=== PATIENT | female | born 1935 | race Caucasian/White ===

== ENCOUNTER 2019-10-01 17:12 | Emergency (ER) | payer MEDICARE, SELFPAY ==
[2019-10-01 17:13] VITALS: BP 169/79; PULSE 88; RESP 16; TEMP 36.8; O2SAT 97; BMI 20.9
--- NOTE | 2019-10-01 17:59 | CT_ITS ---
STUDY: CT BRAIN WITHOUT CONTRAST REASON FOR EXAM: Female, 84 years old. LEFT ARM WEAKNESS,ELEVATED BP RADIATION DOSAGE (If Supplied By Facility): CTDIvol = ( 44.99 ) mGy, DLP = ( 796.11 ) mGycm TECHNIQUE: Transaxial CT imaging of the brain was performed without administration of intravenous contrast material. Individualized dose optimization techniques were used for this CT. COMPARISON: No relevant priors. FINDINGS: Normal soft tissue structures. Normal calvarium. Mild calcification of cavernous carotids Moderate atrophy and periventricular white matter ischemic changes.. Normal basal ganglia and thalami. Normal brainstem. Normal cerebellum. There is no intracranial hemorrhage. There are no findings of an acute ischemic infarction. Postsurgical changes of the orbits. Moderate right maxillary sinus disease and mild mucosal thickening in the bilateral ethmoid and right sphenoid sinuses. CT/Brain/Head without Contrast IMPRESSION: Moderate atrophy and periventricular white matter ischemic changes. No evidence for acute bleed. If concern for acute infarct MRI recommended. Electronically Signed: Vicente Huffman MD at 18:48 EDT , Service support ,
--- NOTE | 2019-10-01 18:00 | EKG12_ITS ---
Test Reason : DIZZINESS Blood Pressure : / mmHG Vent. Rate : 074 BPM Atrial Rate : 074 BPM P-R Int : 168 ms QRS Dur : 092 ms QT Int : 416 ms P-R-T Axes : 071 011 041 degrees QTc Int : 461 ms Normal sinus rhythm Normal ECG Confirmed by ORQUIDEA OLSEN, JEROME ([id number]), metropolitan editor MARIE ADAMES ([id number]) on 10/05/2019 10:53:35 AM Referred By: Jessica Luna Confirmed By:JEROME HEARD MD
[2019-10-01 18:25] LABS: Absolute Lymphocyte Count 1.51 X10^3/uL (0.83-4.51); Absolute Neutrophil Count 2.7 X10^3/uL (2.0-7.7); Basophil# 0.04 X10^3/uL; Basophil% 0.8 % (0-1); Eosinophil# 0.24 X10^3/uL; Eosinophils% 4.7 % (0-5); Hematocrit 42.7 % (37-47); Lymphocyte # 1.51 X10^3/ul (4.0); Lymphocyte % 29.5 % (19-41); Mean Corp Hgb Conc 32.8 g/dL (32-36); Mean Corpuscular Volume 91.4 fL (81-99); Mean Platelet Vol. 9.4 fl (6.2-12.0); Monocyte# 0.58 X10^3/uL; Monocyte% 11.4 % (0-10); NRBC Flagged by Analyzer 0 % (0-5); Neutrophil # 2.73 X10^3/uL (2.7-7.7); Neutrophil % 53.4 % (47-70); Platelet Count 233 K/mm3 (150-450); RBC Distribution Width CV 12.6 % (11.6-14.6); RBC Distribution Width SD 41.3 fl (35.1-43.9); Red Blood Count 4.67 M/mm3 (4.2-5.4); White Blood Count 5.1 K/mm3 (4.4-11.0)
[2019-10-01 18:33] LABS: Prothrombin Time (Protime)PT. 12.4 SECONDS (11.7-14.9)
[2019-10-01 18:41] LABS: ALB/GLOB Ratio 1.2 RATIO (0.9-2.4); AST(SGOT) 14 U/L (15-37); Alanine Aminotransfer ALT/SGPT 20 U/L (13-56); Alkaline Phosphatase 80 U/L (45-117); Anion Gap 6 (5-15); BUN 11 mg/dL (7-18); BUN/Creat Ratio 17.7 RATIO (10-20); Calcium,Total 9.6 mg/dL (8.5-10.1); Chloride 98 mmol/L (98-107); Creatinine, Serum 0.62 mg/dL (0.55-1.02); EST Glomerular Filtration Rate 97 mL/min (>60); Est Glom Filt Rate - Afr Amer 117 mL/min (>60); Estimated Creatinine Clearance 32.53 ml/min; Globulin 3.4 g/dL (2.2-4.2); Glucose 97 mg/dL (74-106); Potassium 4.2 mmol/L (3.5-5.1); Protein, Total 7.4 g/dL (6.4-8.2); Sodium Level 133 mmol/L (136-145)
[2019-10-01 19:12] LABS: Bacteria 0 SEEN /hpf (None Seen); Mucous, Urine 0 SEEN /hpf (<or=2+); Red Blood Cells-Urine 0 SEEN /hpf (0-5)
[2019-10-01 19:19] LABS: Color, Urine Yellow (Yellow); Glucose, Dipstick Normal (Normal); Ketone-Dipstick Negative (Negative); Leukocyte Esterase-Dipstick 25 /ul (Negative); Nitrite-Dipstick Negative (Negative); Occult Blood-Urine 25 /ul (Negative); Protein-Dipstick Negative (Negative); Specific Gravity, Urine 1.005 (1.002-1.030); Urine Bilirubin Dipstick Negative (Negative); Urine Clarity Sl. Cloudy (Clear); Urine Urobilinogen Normal (Normal)
[2019-10-01 19:31] LABS: Squamous Epithelial Cells - UA 0-5 SEEN /hpf (5-10); White Blood Cells 0-5 SEEN /hpf (0-5)
[2019-10-01 19:55] VITALS: O2SAT 100
--- NOTE | 2019-10-01 21:06 | ED.VISSUMM ---
- ER Visit Summary Date of Service: 10/01/19 Chief Complaint: Hypertension, confusion, fatigue History of Present Illness: The patient is a 84 F who presents with hypertension, confusion, and fatigue that has been constant over the past 5 days. Patient states that she has noticed her blood pressure to be elevated over the past several days. Patient states she feels dizzy and fatigued. Patient states she feels confused at times. Patient states she just does not feel like her normal self. Patient admits to some mild nausea but denies any vomiting. Patient denies any chest pain or shortness of breath. Patient admits to some chills but denies any fevers. Patient denies any sick contacts. Physical Examination: Vital signs are stable. Patient is afebrile. Patient is in no acute distress. Oral mucosa is pink and moist. Neck is supple. Trachea is midline. There is no JVD. Heart was regular rate and rhythm. Lungs are clear and equal bilaterally. Abdomen is soft. Bowel sounds are normal. There is no tenderness. Cranial nerves II through XII are intact. There are no focal motor or sensory deficits noted. Extremities are intact. There is no calf tenderness or edema. Test Results: EKG showed normal sinus rhythm with a rate of 74. There are no acute ST or T wave changes. This was unchanged compared to previous EKG dated 04/13/2019. CT scan of the brain was obtained. There is mild atrophy but no acute intracranial abnormality. CBC, comprehensive metabolic profile, and urinalysis were obtained were all within normal limits. Emergency Department Course and Treatment: Patient was feeling better on reevaluation. Patient wants to go home. Patient was advised of her findings. Patient was instructed to follow-up with her primary care physician in 5 to 7 days. Patient and her family understood and were agreeable with the plan. All questions were answered. Disposition: Discharge home Impression: 1. Dizziness This note was generated with [employer] dictation software. It may contain incorrect words, spelling, and punctuation that were not noted in review of the chart prior to signing ED Disposition - Plan for ED Patient: Disposition: Home or Assisted Living Diagnosis: Dizziness Instructions: ED Dizziness [facility] Referrals: Antwon Staton DO [Primary Care Provider] - 5-7 Days
[2019-10-01 21:35] VITALS: BP 155/82; PULSE 78; RESP 18; O2SAT 98
== END 2019-10-01 21:36 | disposition home or self-care (01) ==
PROVIDERS: Emergency Provider Emergency Medicine; PCP Student in an Organized Health Care Education/Training Program
DX: R42 Dizziness and giddiness (principal); I10 Essential (primary) hypertension; R53.83 Other fatigue; R41.0 Disorientation, unspecified; R11.0 Nausea; Z79.899 Other long term (current) drug therapy; R53.1 Weakness; E03.9 Hypothyroidism, unspecified
CPT/HCPCS: 70450; 80053; 81001; 84484; 85025; 85610; 85730; 93005; 99284; J7040; A4216

== ENCOUNTER → 2019-10-04 | Outpatient (CLI) | payer MEDICARE, SELFPAY ==
[2019-10-01 17:13] VITALS: BMI 20.9
== END | disposition home or self-care (01) ==
LOC: LABSPEC 11:26
PROVIDERS: PCP Student in an Organized Health Care Education/Training Program; Referring Provider Registered Nurse; Visit Provider Registered Nurse
DX: Z20.828 Contact with and (suspected) exposure to other viral communicable diseases (principal)
CPT/HCPCS: 87635; G2023; U0003

== ENCOUNTER 2020-04-28 13:46 | Outpatient (RCR) | payer MEDICARE, SELFPAY | END 2020-04-28 23:59 | LOC: IMMUN 13:46 | PROVIDERS: PCP Student in an Organized Health Care Education/Training Program; Visit Provider Family Medicine | DX: Z23 Encounter for immunization (principal) | CPT/HCPCS: 0011A; 0012A; 91301 ==

== ENCOUNTER 2023-06-27 20:57 | Emergency (ER) | payer MEDICARE, SELFPAY ==
[2023-06-27 20:59] VITALS: BP 177/90; PULSE 88; RESP 18; TEMP 36.8; O2SAT 98; BMI 19.7
[2023-06-27 22:00] VITALS: BP 154/59; PULSE 93; RESP 20; O2SAT 98
--- NOTE | 2023-06-27 22:15 | EKG12_ITS ---
Test Reason : CONFUSION Blood Pressure : / mmHG Vent. Rate : 088 BPM Atrial Rate : 088 BPM P-R Int : 182 ms QRS Dur : 086 ms QT Int : 376 ms P-R-T Axes : 071 002 052 degrees QTc Int : 454 ms Sinus rhythm with Premature atrial complexes Nonspecific ST abnormality Abnormal ECG Confirmed by Hipolito Lion ([id number]), primer expeditor and drier JANENE WATT ([id number]) on 07/01/2023 8:56:28 AM Referred By: MAT Confirmed By:Hipolito Lion
--- NOTE | 2023-06-27 22:15 | CT_ITS ---
INDICATION: dizziness, confusion EXAMINATION: CT BRAIN WITHOUT CONTRAST, CTA HEAD, AND CTA NECK TECHNIQUE: Noncontrast axial images were obtained of the brain. Subsequently, routine carotid CT angiogram protocol was performed without and with IV contrast. In addition, images were obtained of the [place]. NASCET criteria using the distal ICAs for comparison were used for evaluation of stenoses. 3D reconstructions were reviewed. A radiation dose optimization technique was used for this scan. IV Contrast dosage and agent: 100 mL of Isovue-370 COMPARISON: No relevant prior comparison study available FINDINGS: --CT BRAIN WITHOUT CONTRAST: BRAIN PARENCHYMA: No intra- or extra-axial hemorrhage. No evidence of acute infarct. No intracranial mass or mass effect. There is preservation of the sheikh/white matter interface. Posterior fossa structures are unremarkable. CSF SPACES mild to moderate global cerebral volume loss.. No hydrocephalus. Basal cisterns are patent. CALVARIUM, SKULL BASE, PARANASAL SINUSES AND MASTOID AIR CELLS: Mild mucoperiosteal thickening at the right maxillary sinus. The remaining paranasal sinuses and mastoid air cells are clear.. No discrete lytic or blastic abnormalities. ASPECTS Score for Acute Strokes: 10 --CTA NECK: AORTIC ARCH AND BRANCHES: Normal anatomy, patent. RIGHT CCA: No occlusion, significant stenosis or dissection. RIGHT ICA: No occlusion, significant stenosis or dissection. Mild atherosclerotic calcification at the origin without flow-limiting stenosis. LEFT CCA: No occlusion, significant stenosis or dissection. LEFT ICA: No occlusion, significant stenosis or dissection. Mild atherosclerotic calcification at the origin without flow-limiting stenosis. RIGHT VERTEBRAL ARTERY: No occlusion, significant stenosis or dissection. LEFT VERTEBRAL ARTERY: No occlusion, significant stenosis or dissection. NECK SOFT TISSUES: Unremarkable. OSSEOUS STRUCTURES: Moderate degenerative change of the cervical spine. --CTA HEAD: --Anterior circulation: ICAs: No significant stenosis at the intracranial/visualized segments. ACAs: No significant stenosis at the visualized segments. ACOM: Present. MCAs: No significant stenosis at the visualized segments. --Posterior circulation: PCOMs: Diminutive on the left. Prominent vessel on the right with low origin off of the internal carotid artery. Variant anatomy directly to the basilar artery. parking line painter: No significant stenosis at the visualized segments. BASILAR ARTERY: No significant stenosis. VERTEBRAL ARTERIES: No significant stenosis at the intradural/visualized segments. Dominant left vertebral artery. No evidence of intracranial aneurysm or vascular malformation. CT/CTA Head AND Neck W/ Contrast IMPRESSION: No acute intracranial finding. No flow limiting stenosis or large vessel occlusion. Electronically Signed: Mickey Joy MD at 0:00 EDT ,
--- NOTE | 2023-06-27 22:16 | EX.ED.DYSGE1 ---
HPI History of Present Illness Chief Complaint: Confusion Detail of Chief Complaint: Lightheadedness and confusion Informant: patient Narrative Narrative: Patient presents with complaint of lightheadedness that she has had for about 3 to 4 weeks. Patient states that she was getting her hair done and when she is sat up and moves her head she started having dizziness and she has had it off and on since then. Patient also states that time she is having a hard time finding her words. Today she had an episode of lightheadedness and had a hard time finding her words so she comes in for evaluation. Patient was seen by ENT for this and was referred back to her primary care physician who ordered outpatient CT scan of the brain as well as ultrasound of the carotids that has not been done yet. Currently she is feeling improved. She denies recent illness. She denies falls or head injuries. She denies focal weakness or vision changes. PFSH PFSH Home Medications Timolol 0.5% 1 drp BID 01/03/16 [History Last Taken 01/03/16 09:00] Vit D3/Folic Acid/B2/B6/B12 [Folgard Tablet] 1 tab PO DAILY 01/03/16 [History Last Taken 1 Week Ago ~12/27/15] latanoprost 0.005 % eye drops 1 drp DAILY 01/03/16 [History Last Taken 01/03/16 09:00] levothyroxine 100 mcg tablet 100 mcg PO DAILY 01/03/16 [History Last Taken 01/03/16] latanoprost 0.005 % eye drops 1 drp 0600 01/17/16 [Rx Last Taken Unknown] levothyroxine 100 mcg tablet 100 mcg PO DAILY@0600 01/17/16 [Rx Last Taken Unknown] melatonin 3 mg tablet 3 mg PO QHS ##14 01/17/16 [Rx Last Taken Unknown] pantoprazole 40 mg tablet,delayed release 40 mg PO DAILY ##14 01/17/16 [Rx Last Taken Unknown] polyethylene glycol 3350 17 gram oral powder packet 17 g PO DAILY ##14 01/17/16 [Rx Last Taken Unknown] polysaccharide iron complex 150 mg iron capsule (Ferrex) 150 mg PO DAILYCM ##14 01/17/16 [Rx Last Taken Unknown] timolol maleate 0.5 % eye drops 1 drp 0600,2200 10/12/16 [Rx Last Taken Unknown] tramadol 50 mg tablet 50 mg PO Q6H PRN PRN Moderate Pain (4-5/10) ##30 01/17/16 [Rx Last Taken Unknown] trazodone 50 mg tablet 50 mg PO QHS PRN Insomnia ##14 01/17/16 [Rx Last Taken Unknown] Allergy/AdvReac Type Severity Reaction Status Date / Time Penicillins Allergy Unknown Unknown Verified 06/27/23 21:05 alendronate sodium Allergy Unknown Verified 06/27/23 21:05 [From Fosamax] Sulfa (Sulfonamide Allergy Unknown Verified 06/27/23 21:05 Antibiotics) Tetracyclines Allergy Unknown Verified 06/27/23 21:05 Social History Smoking Status: Never smoker ROS ROS ED Review of Systems ROS Unobtainable: other Constitutional Constitutional ED: Reports lethargy; Denies chills, fever(s), sweats or weight loss Eyes Eyes: Denies blurry vision, change in vision or diplopia ENT ENT ED: Denies rhinorrhea or sore throat Cardiovascular Cardiovascular: Denies chest pain, orthopnea or racing heartbeat Respiratory/Chest Respiratory/Chest: Denies cough, dyspnea, dyspnea on exertion, orthopnea or sputum Gastrointestinal Gastrointestinal: Denies abdominal pain, diarrhea, nausea or vomiting Genitourinary Genitourinary ED: Denies dysuria, hematuria or urinary frequency Musculoskeletal Musculoskeletal: Denies arthralgias, back pain, myalgias or neck pain Integumentary Denies abscess, Abrasions or rash Neurologic Neurologic: Reports other Details: Dizziness, difficulty finding words ; Denies headache(s) or weakness Psychiatric Psychiatric: Denies anxiety, depression or suicidal thoughts Endocrine Endocrinology: Denies polydipsia, polyphagia or polyuria Hematologic/Lymphatic Hematologic/Lymphatic: Denies easy bleeding, easy bruising or lymphadenopathy Allergic/Immunologic Allergic/Immunologic ED: Denies mouth swelling, tongue swelling or urticaria EXAM Physical Exam Const Vital Signs: 06/27/23 20:59 06/27/23 22:00 06/27/23 23:00 Temperature 98.3 F Temperature Source Temporal Pulse Rate 88 93 83 Respiratory Rate 18 20 H 22 H Blood Pressure 177/90 H 154/59 H 117/58 L Blood Pressure Mean 119 87 74 Pulse Ox 98 98 96 Oxygen Delivery Method Room Air 06/28/23 00:40 06/27/23 23:45 06/28/23 00:15 Temperature 98 F Temperature Source Pulse Rate 91 101 H 91 Respiratory Rate 17 20 H 17 Blood Pressure 162/77 H 126/108 H 162/77 H Blood Pressure Mean 105 114 102 Pulse Ox 100 96 100 Oxygen Delivery Method Positive well nourished and well developed General Appearance ED: well developed and NAD HEENT Reports TM's clear and moist mucous membranes normocephalic and atraumatic; Negative for trauma or tenderness Tympanic Membrane ED: Yes TM's clear Eyes PERRL and EOMs intact bilaterally General Eye ED: Negative for pale conjunctiva or scleral icterus Neck no lymphadenopathy, supple and no JVD General: Negative for tenderness Chest Wall inspection of chest normal and palpation of chest normal Chest: Negative for tenderness Resp normal respiratory effort and clear to auscultation bilaterally Effort and Inspection: Negative for respiratory distress or pain with movement Auscultation: Negative for rhonchi, wheezes or diminished lung sounds Cardio regular rate, regular rhythm, S1 normal heart sound, S2 normal heart sound and no murmurs Peripheral Pulses: pulses 2+ throughout GI normal to inspection, nondistended, normoactive bowel sounds, soft to palpation, non-tender, non-distended and no masses Back/Spine no CVA tenderness and no thoracic nor lumbar tenderness Extremity normal to inspection General Extremety ED: Negative for edema General Extremity: Negative for edema Neuro oriented x3, CN's II-XII intact bilaterally, no sensory deficits noted and gait normal Neuro Narrative: Finger-nose and heel chaudhary testing within normal limits, negative Romberg, negative for drift, fundi benign. No focal weakness. NIH stroke scale 0. Sensorium / Orientation: awake, alert, oriented to person, oriented to place and oriented to time Motor Exam: strength 5/5 throughout and strength abnormal Psych mental status grossly normal Skin no rashes or lesions noted and no wounds MDM MDM MDM Narrative Medical decision making narrative: Patient complains of lightheadedness. She had some episodes intermittently of some difficult defining words. Etiology uncertain. This been going on for up to a month. IV line established. CBC with differential obtained for white count 5.4 with hemoglobin 13.8 and platelet count of 245. Chemistries unremarkable. BUN was 20 and creatinine 0.63. Troponin was normal at 7. EKG obtained showed sinus rhythm with ventricular rate of [address] changes. Patient had a CTA of the head and neck that was unremarkable. Urinalysis was normal. This point etiology of her dizziness unclear. Recommend she follow-up with her primary care physician within next 3 to 5 days. Lab Data Attestation: I reviewed the patient's lab results. Labs: Laboratory Results - last 24 hr 06/27/23 06/27/23 21:17 22:35 WBC 5.4 RBC 4.65 Hgb 13.8 Hct 42.6 MCV 91.6 MCH 29.7 MCHC 32.4 RDW Std Deviation 41.6 RDW Coeff of Dyan 12.5 Plt Count 245 MPV 10.0 Immature Gran % (Auto) 0.200 Neut % (Auto) 43.7 L Lymph % (Auto) 37.0 Coleman % (Auto) 12.9 H Eos % (Auto) 5.6 H Baso % (Auto) 0.6 Absolute Neuts (auto) 2.3 Absolute Lymphs (auto) 1.98 Nucleated RBC % 0 Sodium 131 L Potassium 4.6 Chloride 101 Carbon Dioxide 24.0 Anion Gap 6 BUN 20 H Creatinine 0.63 Estim Creat Clear Calc 38.00 Est GFR (MDRD) Af Amer 114 Est GFR (MDRD) Non-Af 94 BUN/Creatinine Ratio 31.6 H Glucose 127 H Calcium 9.2 Troponin I High Sens 7 Urine Color Straw Urine Clarity Clear Urine pH 6.5 Ur Specific [place] 1.010 Urine Protein Negative Urine Glucose (UA) Normal Urine Ketones Negative Urine Occult Blood 10 H Urine Nitrite Negative Urine Bilirubin Negative Urine Urobilinogen Normal Ur Leukocyte Esterase 25 H Urine RBC 0 SEEN Urine WBC 0-5 SEEN Ur Squamous Epith Cells 0 SEEN Urine Bacteria 0 SEEN Urine Mucus 0 SEEN Radiography Diagnostic Testing: Clinical Impression(s) from Imaging Studies Head/Neck CTA 06/27/23 22:15 IMPRESSION: No acute intracranial finding. No flow limiting stenosis or large vessel occlusion. Electronically Signed: Mickey Joy MD at 0:00 EDT , EKG Initial EKG: Attestation: I personally reviewed and interpreted this EKG as follows: Comments: Sinus rhythm with ventricular rate of [address] changes Discharge Plan Triage Chief Complaint: Confusion ED Provider: Merari Rhoades Dx/Rx/DC Orders Clinical Impression: Dizziness Instructions: ED Dizziness, Uncertain Cause Prescriptions: No Action Vit D3/Folic Acid/B2/B6/B12 [Folgard Tablet] 1 EACH tablet 1 tab PO DAILY latanoprost 1 DROP bottle 1 drp Each Eye DAILY Patient Comments: IN AM PER PATIENT REQUEST levothyroxine 100 MCG tablet 100 mcg PO DAILY Timolol 0.5% 0.5 % Drops 1 drp Each Eye BID latanoprost 1 DROP bottle 1 drp Each Eye 0600 0RF trazodone 50 MG tablet 50 mg PO QHS PRN (Reason: Insomnia) Qty: 14 0RF polyethylene glycol 3350 17 GM powder in packet 17 g PO DAILY Qty: 14 0RF polysaccharide iron complex [Ferrex 150] 150 MG capsule 150 mg PO DAILYCM Qty: 14 0RF melatonin 3 MG tablet 3 mg PO QHS Qty: 14 0RF tramadol 50 MG tablet 50 mg PO Q6H PRN PRN (Reason: Moderate Pain (4-5/10)) Qty: 30 0RF levothyroxine 100 MCG tablet 100 mcg PO DAILY@0600 0RF pantoprazole 40 MG tablet 40 mg PO DAILY Qty: 14 0RF timolol maleate 1 DROP drops 1 drp Each Eye 0600,2200 0RF Primary Care Provider: Antwon Staton Referrals: Antwon Staton DO [Primary Care Provider] - 3-5 Days Disposition Disposition: Home, Self Care Discharge Date/Time: 06/28/23 00:41
[2023-06-27 22:26] LABS: Absolute Lymphocyte Count 1.98 X10^3/uL (0.83-4.51); Absolute Neutrophil Count 2.3 X10^3/uL (2.0-7.7); Basophil# 0.03 X10^3/uL; Basophil% 0.6 % (0-1); Eosinophils% 5.6 % (0-5); Hematocrit 42.6 % (37-47); Hemoglobin 13.8 g/dL (12.0-15.0); Lymphocyte # 1.98 X10^3/ul (0.83-4.51); Mean Corp Hgb Conc 32.4 g/dL (32-36); Mean Corpuscular Hgb 29.7 pg (27.0-32.0); Mean Corpuscular Volume 91.6 fL (81-99); Monocyte# 0.69 X10^3/uL; Monocyte% 12.9 % (0-10); NRBC Flagged by Analyzer 0 % (0-5); Neutrophil # 2.34 X10^3/uL (2.7-7.7); Neutrophil % 43.7 % (47-70); Platelet Count 245 K/mm3 (150-450); RBC Distribution Width CV 12.5 % (11.6-14.6); RBC Distribution Width SD 41.6 fl (35.1-43.9); Red Blood Count 4.65 M/mm3 (4.2-5.4); White Blood Count 5.4 K/mm3 (4.4-11.0)
[2023-06-27 22:39] LABS: Bacteria 0 SEEN /hpf (None Seen); Mucous, Urine 0 SEEN /hpf (<or=2+); Red Blood Cells-Urine 0 SEEN /hpf (0-5); Squamous Epithelial Cells - UA 0 SEEN /hpf (5-10)
[2023-06-27] MEDS: 0.9% Normal Saline (1000mL) 1,000 ML 150 ML IV (22:40)
[2023-06-27 22:43] LABS: Anion Gap 6 (5-15); BUN 20 mg/dL (7-18); BUN/Creat Ratio 31.6 RATIO (10-20); Calcium,Total 9.2 mg/dL (8.5-10.1); Chloride 101 mmol/L (98-107); Creatinine, Serum 0.63 mg/dL (0.55-1.02); EST Glomerular Filtration Rate 94 mL/min (>60); Est Glom Filt Rate - Afr Amer 114 mL/min (>60); Glucose 127 mg/dL (74-106); Potassium 4.6 mmol/L (3.5-5.1); Sodium Level 131 mmol/L (136-145); Troponin-I HS 7 pg/mL (3.0-54.0)
[2023-06-27 22:55] LABS: Color, Urine Straw (Yellow); Glucose, Dipstick Normal (Normal); Ketone-Dipstick Negative (Negative); Leukocyte Esterase-Dipstick 25 /ul (Negative); Nitrite-Dipstick Negative (Negative); Occult Blood-Urine 10 /ul (Negative); Protein-Dipstick Negative (Negative); Urine Bilirubin Dipstick Negative (Negative); Urine Clarity Clear (Clear); Urine Urobilinogen Normal (Normal); Urine pH 6.5 (5.0 - 8.0)
[2023-06-27 23:00] VITALS: BP 117/58; PULSE 83; RESP 22; O2SAT 96
[2023-06-27 23:02] LABS: White Blood Cells 0-5 SEEN /hpf (0-5)
[2023-06-27 23:45] VITALS: BP 126/108; PULSE 101; RESP 20; O2SAT 96
[2023-06-28 00:15] VITALS: BP 162/77; PULSE 91; RESP 17; O2SAT 100
[2023-06-28 00:40] VITALS: BP 162/77; PULSE 91; RESP 17; TEMP 36.6; O2SAT 100
== END 2023-06-28 00:41 | disposition home or self-care (01) ==
PROVIDERS: Emergency Provider Emergency Medicine; PCP Student in an Organized Health Care Education/Training Program; Visit Provider Emergency Medicine
DX: R42 Dizziness and giddiness (principal); R41.0 Disorientation, unspecified; Z79.890 Hormone replacement therapy; Z79.899 Other long term (current) drug therapy
CPT/HCPCS: 70496; 70498; 80048; 81001; 84484; 85025; 93005; 96360; 96361; 99283; J7030; Q9967; A4216

== ENCOUNTER 2023-07-07 07:13 | Observation (INO) | payer MEDICARE, SELFPAY ==
[2023-07-07] VITALS (11 sets, daily range): BP systolic 131–178; BP diastolic 50–84; PULSE 60–112; RESP 15–20; TEMP 36.3–37.7; O2SAT 94–100; BMI 20.1; BMI 18.9
--- NOTE | 2023-07-07 07:27 | EKG12_ITS ---
Test Reason : SOB/DIZZY Blood Pressure : / mmHG Vent. Rate : 068 BPM Atrial Rate : 068 BPM P-R Int : 180 ms QRS Dur : 086 ms QT Int : 410 ms P-R-T Axes : 066 003 057 degrees QTc Int : 435 ms Sinus rhythm with Premature atrial complexes Nonspecific ST and T wave abnormality Abnormal ECG Confirmed by Hipolito Lion ([id number]), web editor MARIE ADAMES ([id number]) on 07/08/2023 10:11:08 AM Referred By: MAYANK/MARGIE Confirmed By:Hipolito Lion
--- NOTE | 2023-07-07 07:27 | CT_ITS ---
INDICATION: speech difficulty EXAMINATION: CT BRAIN WITHOUT CONTRAST, CTA HEAD, AND CTA NECK TECHNIQUE: Noncontrast axial images were obtained of the brain. Subsequently, routine carotid CT angiogram protocol was performed without and with IV contrast. In addition, images were obtained of the [place]. NASCET criteria using the distal ICAs for comparison were used for evaluation of stenoses. 3D reconstructions were reviewed. A radiation dose optimization technique was used for this scan. IV Contrast dosage and agent: 100 cc of Isovue-370 COMPARISON: Prior study dated: 06/27/2023 FINDINGS: --CT BRAIN WITHOUT CONTRAST: BRAIN PARENCHYMA: No intra- or extra-axial hemorrhage. No evidence of acute infarct. No intracranial mass or mass effect. There is preservation of the sheikh/white matter interface. Posterior fossa structures are unremarkable. Periventricular deep white matter changes likely due to chronic microvascular disease. CSF SPACES: Moderate diffuse atrophy. Basal cisterns are patent. CALVARIUM, SKULL BASE, PARANASAL SINUSES AND MASTOID AIR CELLS: Clear. No discrete lytic or blastic abnormalities. --CTA NECK: AORTIC ARCH AND BRANCHES: Normal anatomy, patent. RIGHT CCA: No occlusion, significant stenosis or dissection. RIGHT ICA: No occlusion, significant stenosis or dissection. LEFT CCA: No occlusion, significant stenosis or dissection. Minimal atherosclerotic calcifications in the left bulb. LEFT ICA: No occlusion, significant stenosis or dissection. RIGHT VERTEBRAL ARTERY: No occlusion, significant stenosis or dissection. Dominant left side. LEFT VERTEBRAL ARTERY: No occlusion, significant stenosis or dissection. NECK SOFT TISSUES: Unremarkable. --CTA HEAD: --Anterior circulation: ICAs: No significant stenosis at the intracranial/visualized segments. ACAs: No significant stenosis at the visualized segments. Hypoplastic development of right A1 segment. ACOM: Present. MCAs: No significant stenosis at the visualized segments. 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 dental practitioner: No significant stenosis at the visualized segments. 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 VERTEBRAL ARTERIES: No significant stenosis at the intradural/visualized segments. Dominant left side. No evidence of intracranial aneurysm or vascular malformation. CT/CTA Head AND Neck W/ Contrast IMPRESSION: 1. No evidence of significant intracranial great vessel stenosis. 2. Mild stenosis of the basilar artery. 3. Essentially unremarkable common and internal carotid arteries bilaterally. Electronically Signed: Fidel Rincon MD at 9:46 EDT ,
--- NOTE | 2023-07-07 07:29 | RAD_ITS ---
INDICATION: sob EXAMINATION/TECHNIQUE: X-RAY - XR Chest 1 View COMPARISON: No relevant prior comparison study available FINDINGS: LINES/DEVICES: None. LUNGS: No consolidation, edema or effusion. No pneumothorax. MEDIASTINUM AND CARDIOVASCULAR STRUCTURES: Cardiac silhouette not enlarged. Atherosclerotic calcifications and tortuosity of the thoracic aorta. Central airways and mediastinal contour are unremarkable. BONES AND SOFT TISSUES: Small calcification lateral to the left humeral head consistent with calcific tendinitis. Dextroscoliosis of the lower thoracic spine and degenerative changes. RAD/Chest 1 View (Portable) IMPRESSION: No radiographic evidence of acute cardiopulmonary disease. Electronically Signed: Fidel Rincon MD at 8:53 EDT ,
--- NOTE | 2023-07-07 07:30 | EX.ED.DYSGE1 ---
HPI History of Present Illness Chief Complaint: Shortness of Breath Informant: patient Narrative Narrative: Patient presents with continued episodes of dizziness and difficulty finding her words. Symptoms have been ongoing for a month or more and are intermittent, but states they are occurring pretty much daily. She states this morning's episode seems to be worse than normal. She got up to go the bathroom at 4:30 in the morning and noticed symptoms. She denies pain anywhere. She denies vertigo symptoms but states she feels more lightheaded. She denies palpitations. She is currently wearing a Holter monitor. Patient states that her thyroid medications were recently decreased and her blood pressure medications were also decreased. [facility] Medical History (Updated 07/07/23 @ 09:[address] Jennifer Anderson MD) Arthritis Glaucoma Hypothyroidism Home Medications Vit D3/Folic Acid/B2/B6/B12 [Folgard Tablet] 1 tab PO DAILY 01/03/16 [History Last Taken 1 Week Ago ~12/27/15] latanoprost 0.005 % eye drops 1 drp DAILY 01/03/16 [History Last Taken 01/03/16 09:00] levothyroxine 100 mcg tablet 100 mcg PO DAILY 01/03/16 [History Last Taken 01/03/16] melatonin 3 mg tablet 3 mg PO QHS ##14 01/17/16 [Rx Last Taken Unknown] pantoprazole 40 mg tablet,delayed release 40 mg PO DAILY ##14 01/17/16 [Rx Last Taken Unknown] polyethylene glycol 3350 17 gram oral powder packet 17 g PO DAILY ##14 01/17/16 [Rx Last Taken Unknown] polysaccharide iron complex 150 mg iron capsule (Ferrex) 150 mg PO DAILYCM ##14 01/17/16 [Rx Last Taken Unknown] timolol maleate 0.5 % eye drops 1 drp 0600,2200 01/17/16 [Rx Last Taken Unknown] tramadol 50 mg tablet 50 mg PO Q6H PRN PRN Moderate Pain (4-5/10) ##30 01/17/16 [Rx Last Taken Unknown] trazodone 50 mg tablet 50 mg PO QHS PRN Insomnia ##14 01/17/16 [Rx Last Taken Unknown] fluoxetine 10 mg capsule 10 mg PO DAILY 07/07/23 [History Last Taken Unknown] levothyroxine 88 mcg tablet 88 mcg PO DAILY 07/07/23 [History Last Taken Unknown] losartan 25 mg tablet 25 mg PO DAILY 07/07/23 [History Last Taken Unknown] metoprolol succinate 25 mg tablet,extended release 24 hr 12.5 mg PO DAILY blood pressure 07/07/23 [History Last Taken Unknown] sodium chloride 1,000 mg soluble tablet 1,000 mg PO TID 07/07/23 [History Last Taken Unknown] Allergy/AdvReac Type Severity Reaction Status Date / Time Penicillins Allergy Unknown Unknown Verified 07/07/23 07:18 alendronate sodium Allergy Unknown Verified 07/07/23 07:18 [From Fosamax] Sulfa (Sulfonamide Allergy Unknown Verified 07/07/23 07:18 Antibiotics) Tetracyclines Allergy Unknown Verified 07/07/23 07:18 Social History Smoking Status: Never smoker ROS ROS ED Constitutional Constitutional ED: Denies chills or fever(s) Eyes Eyes: Denies change in vision or discharge from eye(s) ENT ENT ED: Denies discharge from eye(s), rhinorrhea or sore throat Cardiovascular Cardiovascular: Denies chest pain or palpitations Respiratory/Chest Respiratory/Chest: Reports dyspnea; Denies cough Gastrointestinal Gastrointestinal: Denies abdominal pain, nausea or vomiting Genitourinary Genitourinary ED: Denies dysuria or urinary frequency Musculoskeletal Musculoskeletal: Denies back pain or extremity pain Integumentary Denies Abrasions or rash Neurologic Neurologic: Reports other Details: Difficulty finding words intermittently ; Denies headache(s) or weakness Psychiatric Psychiatric: Denies anxiety or depression Allergic/Immunologic Allergic/Immunologic ED: Denies lip swelling or urticaria EXAM Physical Exam Const Vital Signs: 07/07/23 07:14 07/07/23 07:15 07/07/23 07:20 Temperature 97.4 F L 97.4 F L Temperature Source Temporal Temporal Pulse Rate 67 67 65 Respiratory Rate 15 15 20 H Respiratory Effort Respiratory Depth Respiratory Pattern Blood Pressure 178/76 H Blood Pressure Mean 110 Pulse Ox 100 100 100 Oxygen Delivery Method Room Air Room Air Room Air 07/07/23 07:49 07/07/23 09:22 07/07/23 09:29 Temperature Temperature Source Pulse Rate 65 75 Respiratory Rate 16 16 Respiratory Effort Normal Respiratory Depth Normal Respiratory Pattern Normal Blood Pressure 175/84 H 145/70 H Blood Pressure Mean 114 95 Pulse Ox 100 100 Oxygen Delivery Method Room Air Room Air Positive well nourished and well developed General Appearance ED: well developed HEENT Reports moist mucous membranes Eyes EOMs intact bilaterally Chest Wall inspection of chest normal and palpation of chest normal Resp normal respiratory effort and clear to auscultation bilaterally Cardio regular rate and regular rhythm GI non-tender Palpation: soft Extremity normal to inspection Neuro oriented x3 and no sensory deficits noted Neuro Narrative: NIH equals 0 Motor Exam: strength 5/5 throughout Psych mental status grossly normal Skin no rashes or lesions noted MDM MDM MDM Narrative Medical decision making narrative: Patient placed on ekg monitor tech. EKG obtained to evaluate for cardiac arrhythmia/ischemia. IV line established. Labwork obtained to evaluate for leukocytosis, anemia, and electrolyte derangement. Urinalysis obtained to evaluate for infection/hematuria. CT of the head and neck obtained to evaluate for any acute abnormalities. History & Record Review Discussion w/independent historian: Patient Lab Data Attestation: I reviewed the patient's lab results. Labs: Laboratory Results - last 24 hr 07/07/23 07/07/23 07:30 07:45 WBC 5.0 RBC 4.49 Hgb 13.5 Hct 40.2 MCV 89.5 MCH 30.1 MCHC 33.6 RDW Std Deviation 40.7 RDW Coeff of Dyan 12.4 Plt Count 212 MPV 9.4 Immature Gran % (Auto) 0.200 Neut % (Auto) 49.8 Lymph % (Auto) 27.9 [place] % (Auto) 13.5 H Eos % (Auto) 8.0 H Baso % (Auto) 0.6 Absolute Neuts (auto) 2.5 Absolute Lymphs (auto) 1.39 Nucleated RBC % 0 Sodium 127 L Potassium 3.9 Chloride 96 L Carbon Dioxide 24.0 Anion Gap 7 BUN 16 Creatinine 0.66 Estim Creat Clear Calc 37.55 Est GFR (MDRD) Af Amer 108 Est GFR (MDRD) Non-Af 90 BUN/Creatinine Ratio 24.2 H Glucose 142 H Calcium 8.8 Total Bilirubin 0.70 Direct Bilirubin 0.17 AST 20 ALT 26 Alkaline Phosphatase 56 Troponin I High Sens 7 Total Protein 6.9 Albumin 3.7 Globulin 3.2 TSH 0.69 Urine Color Straw Urine Clarity Clear Urine pH 7.0 Ur Specific [place] 1.005 Urine Protein Negative Urine Glucose (UA) Normal Urine Ketones Negative Urine Occult Blood 10 H Urine Nitrite Negative Urine Bilirubin Negative Urine Urobilinogen Normal Ur Leukocyte Esterase Negative Urine RBC 0-5 SEEN Urine WBC 0 SEEN Ur Squamous Epith Cells 0 SEEN Urine Bacteria 0 SEEN Urine Mucus 0 SEEN Radiography Chest X-Ray - ED: 1 View, Read by ED Physician, Chronic Changes and No Infiltrates Diagnostic Testing: Clinical Impression(s) from Imaging Studies Head/Neck CTA 07/07/23 07:27 IMPRESSION: 1. No evidence of significant intracranial great vessel stenosis. 2. Mild stenosis of the basilar artery. 3. Essentially unremarkable common and internal carotid arteries bilaterally. Electronically Signed: Fidel Rincon MD at 9:46 EDT , Chest X-Ray 07/07/23 07:29 IMPRESSION: No radiographic evidence of acute cardiopulmonary disease. Electronically Signed: Fidel Rincon MD at 8:53 EDT , EKG Initial EKG: Attestation: I personally reviewed and interpreted this EKG as follows: Interpretation: Sinus Rhythm (Sinus at 68 with PACs. No acute ischemia.) Treatment and Re-Evaluation :: CBC was normal white count 5.0 with a hemoglobin of 13.5. Differential unremarkable. Chemistry studies significant for a sodium of 127 and a chloride of 96. Previous sodium levels have been around 130 or 131. Renal function is normal. Glucose is 142. LFTs are normal and TSH is normal at 0.69. Urinalysis is unremarkable. EKG is sinus rhythm with PACs. No obvious ischemia. CTA of the head and neck is unremarkable. Patient did wring out once during her visit stating that her lightheadedness seemed worse. Nursing staff states when they walked her to the bathroom she was a little shaky and made statements that she felt like she might pass out. Given that the patient has had ongoing symptoms for quite some time and 2 visits in the last 2 weeks, I will speak with hospitalist regarding admission for MRI of the brain as well as evaluation by telemetry neurology. She is receiving normal saline at this time to help with her hyponatremia. Discharge Plan Triage Chief Complaint: Shortness of Breath ED Provider: Jennifer Anderson Dx/Rx/DC Orders Clinical Impression: Dizziness, Hyponatremia, Near syncope, Difficulty with speech Prescriptions: No Action Vit D3/Folic Acid/B2/B6/B12 [Folgard Tablet] 1 EACH tablet 1 tab PO DAILY latanoprost 1 DROP bottle 1 drp Each Eye DAILY Patient Comments: IN AM PER PATIENT REQUEST levothyroxine 100 MCG tablet 100 mcg PO DAILY trazodone 50 MG tablet 50 mg PO QHS PRN (Reason: Insomnia) Qty: 14 0RF polyethylene glycol 3350 17 GM powder in packet 17 g PO DAILY Qty: 14 0RF polysaccharide iron complex [Ferrex 150] 150 MG capsule 150 mg PO DAILYCM Qty: 14 0RF melatonin 3 MG tablet 3 mg PO QHS Qty: 14 0RF tramadol 50 MG tablet 50 mg PO Q6H PRN PRN (Reason: Moderate Pain (4-5/10)) Qty: 30 0RF pantoprazole 40 MG tablet 40 mg PO DAILY Qty: 14 0RF timolol maleate 1 DROP drops 1 drp Each Eye 0600,2200 0RF levothyroxine 88 mcg tablet 88 mcg PO DAILY losartan 25 mg tablet 25 mg PO DAILY fluoxetine 10 mg capsule 10 mg PO DAILY metoprolol succinate 25 mg tablet extended release 24 hr 12.5 mg PO DAILY sodium chloride 1,000 mg tablet,soluble 1,000 mg PO TID Primary Care Provider: Antwon Staton Referrals: Antwon Staton DO [Primary Care Provider] - Disposition Disposition: Acute Care Hospital [facility]
[2023-07-07 07:49] LABS: Absolute Lymphocyte Count 1.39 X10^3/uL (0.83-4.51); Absolute Neutrophil Count 2.5 X10^3/uL (2.0-7.7); Basophil# 0.03 X10^3/uL; Basophil% 0.6 % (0-1); Hematocrit 40.2 % (37-47); Hemoglobin 13.5 g/dL (12.0-15.0); Lymphocyte # 1.39 X10^3/ul (0.83-4.51); Lymphocyte % 27.9 % (19-41); Mean Corp Hgb Conc 33.6 g/dL (32-36); Mean Corpuscular Hgb 30.1 pg (27.0-32.0); Mean Corpuscular Volume 89.5 fL (81-99); Mean Platelet Vol. 9.4 fl (6.2-12.0); Monocyte# 0.67 X10^3/uL; Monocyte% 13.5 % (0-10); NRBC Flagged by Analyzer 0 % (0-5); Neutrophil # 2.48 X10^3/uL (2.7-7.7); Neutrophil % 49.8 % (47-70); Platelet Count 212 K/mm3 (150-450); RBC Distribution Width CV 12.4 % (11.6-14.6); RBC Distribution Width SD 40.7 fl (35.1-43.9); Red Blood Count 4.49 M/mm3 (4.2-5.4)
[2023-07-07 07:50] LABS: Bacteria 0 SEEN /hpf (None Seen); Mucous, Urine 0 SEEN /hpf (<or=2+); Squamous Epithelial Cells - UA 0 SEEN /hpf (5-10); White Blood Cells 0 SEEN /hpf (0-5)
--- NOTE | 2023-07-07 07:50 | ED.RN ---
pt reports head doesnt hurt just feels full, while holding the top of her head
[2023-07-07 07:56] LABS: Color, Urine Straw (Yellow); Glucose, Dipstick Normal (Normal); Ketone-Dipstick Negative (Negative); Leukocyte Esterase-Dipstick Negative /ul (Negative); Nitrite-Dipstick Negative (Negative); Occult Blood-Urine 10 /ul (Negative); Protein-Dipstick Negative (Negative); Specific Gravity, Urine 1.005 (1.002-1.030); Urine Bilirubin Dipstick Negative (Negative); Urine Clarity Clear (Clear); Urine Urobilinogen Normal (Normal)
[2023-07-07 08:10] LABS: Red Blood Cells-Urine 0-5 SEEN /hpf (0-5)
[2023-07-07 08:16] LABS: AST(SGOT) 20 U/L (15-37); Alanine Aminotransfer ALT/SGPT 26 U/L (13-56); Albumin, Serum 3.7 g/dL (3.2-5.0); Alkaline Phosphatase 56 U/L (45-117); Anion Gap 7 (5-15); BUN 16 mg/dL (7-18); BUN/Creat Ratio 24.2 RATIO (10-20); Bilirubin, Direct 0.17 mg/dL (0.00-0.30); Calcium,Total 8.8 mg/dL (8.5-10.1); Chloride 96 mmol/L (98-107); Creatinine, Serum 0.66 mg/dL (0.55-1.02); EST Glomerular Filtration Rate 90 mL/min (>60); Est Glom Filt Rate - Afr Amer 108 mL/min (>60); Estimated Creatinine Clearance 37.55 ml/min; Globulin 3.2 g/dL (2.2-4.2); Glucose 142 mg/dL (74-106); Potassium 3.9 mmol/L (3.5-5.1); Protein, Total 6.9 g/dL (6.4-8.2); Sodium Level 127 mmol/L (136-145); Thyroid Stim Hormone (TSH) 0.69 uIU/mL (0.358-3.74); Troponin-I HS 7 pg/mL (3.0-54.0)
[2023-07-07] MEDS: 0.9% Normal Saline (1000mL) 1,000 ML 150 ML IV ×2 (09:29→13:12)
--- NOTE | 2023-07-07 10:14 | HP.PCM.HOS_ITS ---
HPI - General General Date of Admission: 07/07/23 Date of Service: 07/07/23 Chief Complaint: Dizziness HPI Narrative VERONICA PRESTON, is a 88 F who presents who presented with dizziness. Per patient symptoms have been ongoing for the past 10 days. Patient describes her dizziness as being lightheaded. Denied any fall. Given the persistent nature of her symptoms presented to the emergency department. Initial head CT obtained came back negative patient was however found to have hyponatremia. Admitted to a monitored bed for further management [facility] Medical History (Updated 07/07/23 @ 09:[address] Jennifer Anderson MD) Arthritis Glaucoma Hypothyroidism Home Medications Vit D3/Folic Acid/B2/B6/B12 [Folgard Tablet] 1 tab PO DAILY 01/03/16 [History Last Taken 07/06/23] latanoprost 0.005 % eye drops 1 drp DAILY 01/03/16 [History Last Taken 07/06/23] timolol maleate 0.5 % eye drops 1 drp 0600,2200 01/17/16 [Rx Last Taken 07/06/23 ] fluoxetine 10 mg capsule 10 mg PO DAILY 07/07/23 [History Last Taken 07/06/23] levothyroxine 88 mcg tablet 88 mcg PO DAILY 07/07/23 [History Last Taken 07/07/23] losartan 25 mg tablet 25 mg PO DAILY 07/07/23 [History Last Taken 07/06/23] sodium chloride 1,000 mg soluble tablet 1,000 mg PO TID 07/07/23 [History Last Taken 07/06/23] Allergy/AdvReac Type Severity Reaction Status Date / Time Penicillins Allergy Unknown Unknown Verified 07/07/23 07:18 alendronate sodium Allergy Unknown Verified 07/07/23 07:18 [From Fosamax] Sulfa (Sulfonamide Allergy Unknown Verified 07/07/23 07:18 Antibiotics) Tetracyclines Allergy Unknown Verified 07/07/23 07:18 Social History Smoking Status: Never smoker ROS ROS Narrative GENERAL: denies fever, chills, night sweats, weight loss, anorexia HEENT: denies headache, sinus congestion, or drainage, dysphagia RESPIRATORY: denies cough, sputum production, shortness of breath, dyspnea on exertion CARDIAC: denies chest pain, palpitations, orthopnea, PND GASTROINTESTINAL: denies abdominal pain, nausea, vomiting, melena, GENITOURINARY: denies dysuria, urgency, frequency, heamaturia EXTREMITY: denies swelling MUSCULOSKELETAL: denies current joint pain or tenderness NEUROLOGIC: denies focal numbness, weakness, tingling HEMATOLOGIC: denies easy bruising and/or hemorrhage INTEGUMENT: Facial flushing PSYCHIATRIC: denies suicidal or homicidal ideation Vital Signs Vital Signs Vital Signs: 07/07/23 07:14 07/07/23 07:15 07/07/23 07:20 Temperature 97.4 F L 97.4 F L Temperature Source Temporal Temporal Pulse Rate 67 67 65 Respiratory Rate 15 15 20 H Respiratory Effort Respiratory Depth Respiratory Pattern Blood Pressure 178/76 H Blood Pressure Mean 110 Pulse Ox 100 100 100 Oxygen Delivery Method Room Air Room Air Room Air 07/07/23 07:49 07/07/23 09:22 07/07/23 09:29 Temperature Temperature Source Pulse Rate 65 75 Respiratory Rate 16 16 Respiratory Effort Normal Respiratory Depth Normal Respiratory Pattern Normal Blood Pressure 175/84 H 145/70 H Blood Pressure Mean 114 95 Pulse Ox 100 100 Oxygen Delivery Method Room Air Room Air Weight Weight: 49.895 kg Body Mass Index (BMI) 20.1 Physical Exam Narrative GENERAL: cooperative HEENT: Atraumatic; normocephalic EYES; Anicteric, Normal Conjunctiva NECK; supple, normal thyroid, RESPIRATORY: Diminished to auscultation CARDIOVASCULAR: Regular S1 S2, GI: soft, normoactive bowel sounds, : No Renal angle tenderness; EXTREMITIES: No edema, no clubbing, MUSCULOSKELETAL: no muscle wasting NEURO: Awake; no lateralizing signs. SKIN: Facial flushing PSYCH; Flat affect Results Lab / Micro Data 07/07/23 07:30 07/07/23 07:30 Labs: Laboratory Results - last 24 hr 07/07/23 07:30: WBC 5.0, RBC 4.49, Hgb 13.5, Hct 40.2, MCV 89.5, MCH 30.1, MCHC 33.6, RDW Std Deviation 40.7, RDW Coeff of Dyan 12.4, Plt Count 212, MPV 9.4, Immature Gran % (Auto) 0.200, Neut % (Auto) 49.8, Lymph % (Auto) 27.9, [facility] % (Auto) 13.5 H, Eos % (Auto) 8.0 H, Baso % (Auto) 0.6, Absolute Neuts (auto) 2.5, Absolute Lymphs (auto) 1.39, Nucleated RBC % 0, Sodium 127 L, Potassium 3.9, Chloride 96 L, Carbon Dioxide 24.0, Anion Gap 7, BUN 16, Creatinine 0.66, Estim Creat Clear Calc 37.55, Est GFR (MDRD) Af Amer 108, Est GFR (MDRD) Non-Af 90, BUN/Creatinine Ratio 24.2 H, Glucose 142 H, Calcium 8.8, Total Bilirubin 0.70, Direct Bilirubin 0.17, AST 20, ALT 26, Alkaline Phosphatase 56, Troponin I High Sens 7, Total Protein 6.9, Albumin 3.7, Globulin 3.2, TSH 0.69 07/07/23 07:45: Urine Color Straw, Urine Clarity Clear, Urine pH 7.0, Ur Specific [place] 1.005, Urine Protein Negative, Urine Glucose (UA) Normal, Urine Ketones Negative, Urine Occult Blood 10 H, Urine Nitrite Negative, Urine Bilirubin Negative, Urine Urobilinogen Normal, Ur Leukocyte Esterase Negative, Urine RBC 0-5 SEEN, Urine WBC 0 SEEN, Ur Squamous Epith Cells 0 SEEN, Urine Bacteria 0 SEEN, Urine Mucus 0 SEEN Imaging Radiology Impression Head/Neck CTA 07/07/23 07:27 IMPRESSION: 1. No evidence of significant intracranial great vessel stenosis. 2. Mild stenosis of the basilar artery. 3. Essentially unremarkable common and internal carotid arteries bilaterally. Electronically Signed: Fidel Rincon MD at 9:46 EDT , Chest X-Ray 07/07/23 07:29 IMPRESSION: No radiographic evidence of acute cardiopulmonary disease. Electronically Signed: Fidel Rincon MD at 8:53 EDT , Assessment & Plan Assessment/Plan (1) Hyponatremia: (2) Dizziness: PLAN: Plan Patient is an 88-year-old lady presenting with dizziness which she describes as lightheadedness 1. Dizziness ? Patient has been admitted to monitored bed. Initial evaluation with head CT was negative as part of evaluation ordered a 2D echo and MRI of the brain to ru le out posterior circulation CVA. Initial assessment with CT angio of the head and neck showed no evidence of significant intracranial great vessel stenosis. Mild stenosis of the basilar artery. Essentially unremarkable common and internal carotid arteries bilaterally. 2. Hyponatremia Chronic, patient is on sodium tablets sodium levels however markedly low on admission patient started on saline with BMP levels ordered for a.m. 3. Hypertension - Blood pressure controlled, home medications continued with dose adjustment as needed 4. Hypothyroidism - Patient is on levothyroxine home dose continued 5. Rosacea ? Symptomatic treatment 6. DVT prophylaxis ? SC Lovenox Time spent in the patient's overall evaluation,decision-making process, review of diagnostic data, adjustment of management, discussion with other providers, nursing nursing and ancillary staff involved in patient's care documentation, 56 minutes Advance planning; did discuss with the patient and family regarding advanced directives as well as CODE STATUS. Did explain the various scenarios involved ( FULL CODE, DNR CCA, DNR CCA with no intubation, and DNR CC and what each meant) patient elected to full code with CPR and intubation if needed. Order was placed. Time spent on discussion 18 minutes. Charges/Coding Visit Charges Inpatient E&M: 44191 Init Hosp L2 Procedures Hospitalists Procedures: 75877 Advncd Care Plan 30 Min
--- NOTE | 2023-07-07 11:53 | MRI_ITS ---
STUDY: MRI BRAIN WITHOUT CONTRAST REASON FOR EXAM: Female, 88 years old. vertigo, WORD FINDING DIFFICULTY TECHNIQUE: Standardized multiplanar fat and water weighted pulse sequences were obtained. COMPARISON: CT of the brain October 01, 2019 FINDINGS: Moderate atrophy and minor periventricular white matter hyperintensity. No evidence for mass effect or restricted diffusion . Normal bilateral basal ganglia. Normal thalami. There is no extra-axial fluid accumulation. Normal flow voids within the major intracranial circulation suggesting patency by spin echo criteria. Normal sella turcica, pituitary gland, infundibular stalk, optic chiasm and hypothalamus. Normal tectal plate and pineal gland. Normal midbrain, vida and medulla. Normal cerebellum. Normal basal cisterns. Normal bilateral temporal bones. Normal bilateral internal auditory canals. Postsurgical changes of the orbits.. Minor mucosal thickening of the right maxillary and bilateral ethmoid sinuses.. Normal calvarium and skull base. Normal visualized soft tissue structures. Normal visualized upper cervical spine. MRI/Brain without Contrast IMPRESSION: Moderate atrophy. No significant white matter disease or evidence for acute infarct Electronically Signed: Vicente Huffman MD at 16:45 EDT ,
--- NOTE | 2023-07-07 11:54 | ECHOD_ITS ---
Reason For Study: TIA/STROKE Procedure This was a 2D Doppler, Color Flow transthoracic echocardiogram. Exam performed portable in patient room. Left Ventricle Normal size and thickness. The left ventricular ejection fraction is 65 %. Unable to assess diastolic dysfunction due to arrhythmia. Right Ventricle Normal right ventricle. Atria The left and right atria are normal. Bubble contrast study is negative for PFO/ASD. Mitral Valve Mild focal mitral valve calcification of the posterior leaflet. Trivial mitral valve insufficiency. Tricuspid Valve Normal tricuspid valve. Aortic Valve Trisinus/trileaflet aortic valve. Mild (1+) aortic valve insufficiency. Pulmonic Valve The pulmonic valve is not well visualized. Great Vessels The aortic root is not well visualized. Pericardium/Pleural No pericardial effusion. Medication Performed a rapid injection of agitated mix of 9 cc saline and 1cc air to assess for atrial septal defect. MMode/2D Measurements & Calculations LVIDd: 4.1 cm IVSd: 0.87 cm LAV(MOD-sp4): 18.2 ml LVIDs: 2.8 cm LVPWd: 0.85 cm FS: 32.0 % LVAd ap4: 19.5 cm2 LVAd ap2: 18.3 cm2 SV(MOD-sp4): 32.0 ml LVLd ap4: 6.4 cm LVLd ap2: 6.1 cm EDV(MOD-sp4): 50.3 ml EDV(MOD-sp2): 46.4 ml EDV(sp4-el): 50.3 ml EDV(sp2-el): 46.9 ml LVAs ap4: 10.7 cm2 LVAs ap2: 10.3 cm2 LVLs ap4: 5.4 cm LVLs ap2: 5.1 cm ESV(MOD-sp4): 18.3 ml ESV(MOD-sp2): 17.6 ml ESV(sp4-el): 18.1 ml ESV(sp2-el): 17.9 ml EF(MOD-sp4): 63.6 % EF(MOD-sp2): 62.1 % EF(sp4-el): 63.9 % SV(MOD-sp2): 28.8 ml SV(sp4-el): 32.2 ml LA A4 area: 9.4 cm2 RA A4 area: 10.3 cm2 TAPSE: 1.6 cm Doppler Measurements & Calculations MV E max brian: 65.9 cm/sec Lat Peak E' Brian: 9.6 cm/sec Med Peak E' Brian: 7.3 cm/sec E/E' lat: 6.8 E/E' med: 9.1 MV V2 max: 74.5 cm/sec Ao V2 max: 130.9 cm/sec LV V1 max: 127.7 cm/sec MV max P.2 mmHg Ao max P.9 mmHg LV V1 max P.6 mmHg MV V2 mean: 48.9 cm/sec Ao V2 mean: 84.2 cm/sec LV V1 mean P.9 mmHg MV mean P.1 mmHg Ao mean P.3 mmHg LV V1 mean: 78.5 cm/sec MV V2 VTI: 16.5 cm Ao V2 VTI: 24.7 cm LV V1 VTI: 23.6 cm AV (velocity ratio): 0.96 ECHO/Echo Complete Interpretation Summary The left ventricular ejection fraction is 65 %. Bubble contrast study is negative for PFO/ASD. Mild focal mitral valve calcification of the posterior leaflet. Mild (1+) aortic valve insufficiency. Ordering Physician: Peterson Rice Referring Physician: LASHELL BURR Performed By: Suzanna Veras RCS
[2023-07-07] MEDS: Hydrocortisone 2.5% Ointment 20 gm tube 1 APPLIC TOPICAL ×2 (15:49→22:11)
[2023-07-07] MEDS: Glucerna Shake 120 ML LIQUID PO ×2 (17:28→22:09)
[2023-07-07] MEDS: Sodium Chloride 1 GM Tablet PO (18:15)
[2023-07-07] MEDS: Timolol 0.5% 5ML OPTH.BTL 1 DRP OPHTHALMIC (22:09)
[2023-07-08 01:30] VITALS: BP 121/50; PULSE 102; RESP 16; TEMP 36.9; O2SAT 93
[2023-07-08] MEDS: 0.9% Normal Saline (1000mL) 1,000 ML 150 ML IV (01:57)
[2023-07-08 02:04] VITALS: BMI 19.2
[2023-07-08 02:21] VITALS: BMI 19.2
[2023-07-08 05:30] VITALS: BP 120/45; PULSE 86; RESP 16; TEMP 36.9; O2SAT 92
[2023-07-08] MEDS: Timolol 0.5% 5ML OPTH.BTL 1 DRP OPHTHALMIC (05:34)
[2023-07-08] MEDS: Levothyroxine 88 MCG Tablet PO (05:34)
[2023-07-08 07:27] LABS: Absolute Lymphocyte Count 0.13 X10^3/uL (0.83-4.51); Absolute Neutrophil Count 10.1 X10^3/uL (2.0-7.7); Basophil# 0.01 X10^3/uL; Basophil% 0.1 % (0-1); Eosinophil# 0.03 X10^3/uL; Eosinophils% 0.3 % (0-5); Hematocrit 38.1 % (37-47); Hemoglobin 12.6 g/dL (12.0-15.0); Lymphocyte # 0.13 X10^3/ul (0.83-4.51); Lymphocyte % 1.2 % (19-41); Mean Corp Hgb Conc 33.1 g/dL (32-36); Mean Corpuscular Hgb 29.8 pg (27.0-32.0); Mean Corpuscular Volume 90.1 fL (81-99); Mean Platelet Vol. 9.9 fl (6.2-12.0); Monocyte# 0.39 X10^3/uL; Monocyte% 3.6 % (0-10); NRBC Flagged by Analyzer 0 % (0-5); Neutrophil # 10.07 X10^3/uL (2.7-7.7); POSITIVE DIFFERENTIAL YES; Platelet Count 190 K/mm3 (150-450); RBC Distribution Width CV 12.7 % (11.6-14.6); RBC Distribution Width SD 41.6 fl (35.1-43.9); Red Blood Count 4.23 M/mm3 (4.2-5.4); White Blood Count 10.7 K/mm3 (4.4-11.0)
[2023-07-08 08:03] VITALS: O2SAT 93
[2023-07-08 08:15] LABS: Anion Gap 7 (5-15); BUN 12 mg/dL (7-18); BUN/Creat Ratio 17.8 RATIO (10-20); Calcium,Total 8.1 mg/dL (8.5-10.1); Chloride 104 mmol/L (98-107); Cholesterol 150 mg/dL (200); Creatinine, Serum 0.68 mg/dL (0.55-1.02); EST Glomerular Filtration Rate 87 mL/min (>60); Est Glom Filt Rate - Afr Amer 106 mL/min (>60); Estimated Creatinine Clearance 37.03 ml/min; Glucose 173 mg/dL (74-106); High Density Lipoprotein 74 mg/dL; Magnesium 1.9 mg/dL (1.6-2.6); Phosphorus 2.4 mg/dL (2.5-4.9); Potassium 3.8 mmol/L (3.5-5.1); Sodium Level 132 mmol/L (136-145); Thyroid Stim Hormone (TSH) 0.32 uIU/mL (0.358-3.74); Triglycerides 42 mg/dL; Very Low Density Lipoprotein 8 mg/dL (5-40)
[2023-07-08 08:50] VITALS: BP 108/51; PULSE 94; RESP 16; TEMP 37.5; O2SAT 94
[2023-07-08] MEDS: Losartan Potassium 25 MG Tablet PO (08:56)
[2023-07-08] MEDS: Glucerna Shake 120 ML LIQUID PO ×2 (08:56→14:12)
[2023-07-08] MEDS: Sodium Chloride 1 GM Tablet PO ×2 (08:56→11:54)
[2023-07-08] MEDS: Latanoprost 0.005% 1 Bottle 1 DRP OPHTHALMIC (08:57)
[2023-07-08] MEDS: Enoxaparin 40 MG/0.4 ML Syringe SC (08:57)
[2023-07-08] MEDS: FLUoxetine 10 MG Capsule PO (08:57)
--- NOTE | 2023-07-08 09:17 | PCM.DC.SUM ---
Providers Date of Admission: 07/07/23 Date of Discharge: 07/08/23 Primary Care Physician: Dr. Antwon Staton, Reason For Visit: ACUTE VERTIGO Diagnosis Discharge Diagnosis (1) Hyponatremia: Status: Acute Code(s): E87.1 - Hypo-osmolality and hyponatremia (2) Dizziness: Status: Acute Code(s): R42 - Dizziness and giddiness Plan Patient is an 88-year-old lady presenting with dizziness which she describes as lightheadedness 1. Dizziness ? Patient has been admitted to monitored bed. Initial evaluation with head CT was negative as part of evaluation ordered a 2D echo and MRI of the brain to rule out posterior circulation CVA. Initial assessment with CT angio of the head and neck showed no evidence of significant intracranial great vessel stenosis. Mild stenosis of the basilar artery. Essentially unremarkable common and internal carotid arteries bilaterally. 2. Hyponatremia Chronic, patient is on sodium tablets sodium levels however markedly low on admission patient started on saline with BMP levels ordered for a.m. ? Patient responded to saline resuscitation sodium level as of this a.m. 132 3. Hypertension - Blood pressure controlled, home medications continued with dose adjustment as needed 4. Hypothyroidism - Patient is on levothyroxine home dose continued 5. Rosacea ? Symptomatic treatment 6. DVT prophylaxis ? SC Lovenox Time spent in the patient's overall evaluation,decision-making process, review of diagnostic data, adjustment of management, discussion with other providers, nursing nursing and ancillary staff involved in patient's care documentation, 32 Medications at Discharge Home Medications Vit D3/Folic Acid/B2/B6/B12 [Folgard Tablet] 1 tab PO DAILY 01/03/16 latanoprost 0.005 % eye drops 1 drp DAILY 01/03/16 timolol maleate 0.5 % eye drops 1 drp 0600,2200 01/17/16 fluoxetine 10 mg capsule 10 mg PO DAILY 07/07/23 levothyroxine 88 mcg tablet 88 mcg PO DAILY 07/07/23 losartan 25 mg tablet 25 mg PO DAILY 07/07/23 sodium chloride 1,000 mg soluble tablet 1,000 mg PO TID 07/07/23 Physical Exam Narrative GENERAL: cooperative HEENT: Atraumatic; normocephalic EYES; Anicteric, Normal Conjunctiva NECK; supple, normal thyroid, RESPIRATORY: Diminished to auscultation CARDIOVASCULAR: Regular S1 S2, GI: soft, normoactive bowel sounds, : No Renal angle tenderness; EXTREMITIES: No edema, no clubbing, MUSCULOSKELETAL: no muscle wasting NEURO: Awake; no lateralizing signs. SKIN: Facial flushing PSYCH; Flat affect Weight / BMI Weight Weight: 49.2 kg Body Mass Index (BMI) 19.2 ABG / Lab / Microbiology Data 07/08/23 06:20 07/08/23 06:20 Laboratory: Laboratory Results - last 24 hr 07/08/23 06:20: WBC 10.7, RBC 4.23, Hgb 12.6, Hct 38.1, MCV 90.1, MCH 29.8, MCHC 33.1, RDW Std Deviation 41.6, RDW Coeff of Dyan 12.7, Plt Count 190, MPV 9.9, Immature Gran % (Auto) 0.800, Neut % (Auto) 94.0 H, Lymph % (Auto) 1.2 L, [place] % (Auto) 3.6, Eos % (Auto) 0.3, Baso % (Auto) 0.1, Absolute Neuts (auto) 10.1 H, Absolute Lymphs (auto) 0.13 L, Nucleated RBC % 0, Sodium 132 L, Potassium 3.8, Chloride 104, Carbon Dioxide 21.0, Anion Gap 7, BUN 12, Creatinine 0.68, Estim Creat Clear Calc 37.03, Est GFR (MDRD) Af Amer 106, Est GFR (MDRD) Non-Af 87, BUN/Creatinine Ratio 17.8, Glucose 173 H, Calcium 8.1 L, Phosphorus 2.4 L, Magnesium 1.9, Triglycerides 42, Cholesterol 150, LDL Cholesterol 68, VLDL Cholesterol 8, HDL Cholesterol 74, TSH 0.32 L Radiography Diagnostic Testing: Radiology Impression Head/Neck CTA 07/07/23 07:27 IMPRESSION: 1. No evidence of significant intracranial great vessel stenosis. 2. Mild stenosis of the basilar artery. 3. Essentially unremarkable common and internal carotid arteries bilaterally. Electronically Signed: Fidel Rincon MD at 9:46 EDT , Brain MRI 07/07/23 11:53 IMPRESSION: Moderate atrophy. No significant white matter disease or evidence for acute infarct Electronically Signed: Vicente Huffman MD at 16:45 EDT , Echocardiogram 07/07/23 11:54 Interpretation Summary The left ventricular ejection fraction is 65 %. Bubble contrast study is negative for PFO/ASD. Mild focal mitral valve calcification of the posterior leaflet. Mild (1+) aortic valve insufficiency. Ordering Physician: Peterson Rice Referring Physician: ANTWON STATON Performed By: Suzanna Veras RCS D/C Instructions Discharge Diet: No restrictions Discharge Activity: Return to Normal Activity Call your doctor if you observe: Fever of 101 or Higher, Shortness of breath, Fainting spells and Chest pain Meaningful Use Info Meaningful Use Diagnoses (Choose all that apply): None applicable Discharge Plan Admission Admit Date/Time: 07/07/23 10:13 Attending Provider: Peterson Rice Primary Care Provider: Antwon Staton Discharge Orders/Prescriptions Prescriptions: Continued Vit D3/Folic Acid/B2/B6/B12 [Folgard Tablet] 1 EACH tablet 1 tab PO DAILY latanoprost 1 DROP bottle 1 drp Each Eye DAILY Patient Comments: IN AM PER PATIENT REQUEST timolol maleate 1 DROP drops 1 drp Each Eye 0600,2200 0RF Patient Comments: takes at HS levothyroxine 88 mcg tablet 88 mcg PO DAILY losartan 25 mg tablet 25 mg PO DAILY fluoxetine 10 mg capsule 10 mg PO DAILY sodium chloride 1,000 mg tablet,soluble 1,000 mg PO TID Referrals / Follow Up: Antwon Staton DO [Primary Care Provider] - Within 1 Week Disposition Disposition (needs filled in before D/C Order can be placed): Home, Self Care Charges/Coding Visit Charges Inpatient E&M: 97662 Disch Hosp >30min
--- NOTE | 2023-07-08 09:37 | PHA.DC.MR.R ---
Pharmacy MA Med Reconciliation Pharmacy Service has performed discharge medication reconciliation for this patient. The patient's discharge medication list was reviewed for discrepancies and discrepancies were resolved. Medications at Discharge Home Medications Vit D3/Folic Acid/B2/B6/B12 [Folgard Tablet] 1 tab PO DAILY 01/03/16 latanoprost 0.005 % eye drops 1 drp DAILY 01/03/16 timolol maleate 0.5 % eye drops 1 drp 0600,2200 01/17/16 fluoxetine 10 mg capsule 10 mg PO DAILY 07/07/23 levothyroxine 88 mcg tablet 88 mcg PO DAILY 07/07/23 losartan 25 mg tablet 25 mg PO DAILY 07/07/23 sodium chloride 1,000 mg soluble tablet 1,000 mg PO TID 07/07/23
[2023-07-08 10:26] VITALS: BMI 19.2
--- NOTE | 2023-07-08 11:24 | CASEMGMT ---
Discharge Planning A list of?HH providers including quality and resource use data and consistent with the patient's preferred geographic region, medical needs, and insurance network was created in [facility] Guide.? This list was provided to the RN GUILLERMO. Nichelle Ramos, Discharge Planning Asst.
--- NOTE | 2023-07-08 11:26 | CASEMGMT ---
Discharge Planning A list of HH providers including quality and resource use data and consistent with the patient's preferred geographic region, medical needs, and insurance network was created in [facility] Guide.? This list was provided to the RN GUILLERMO. Nichelle Ramos, Discharge Planning Asst.
--- NOTE | 2023-07-08 11:45 | CASEMGMT ---
ANDREA LI Face to Face with patient for initial transition planning/care coordination assessment. ANDREA LI introduced self and role at [facility]. Patient lying in bed, alert and oriented. Patient willing to participate in assessment and is able to answer all questions appropriately. Care providers, pharmacy, and demographics verified. PCP: Shemar Specialists: ARAMIS Lead C Developer Preferred Pharmacy: [facility] Insurance: [employer] [facility] Prescription Benefit: yes Living Will/HPOA: yes, daughter Lori Hernandez LNOK: daughter Living Arrangements: Patient lives alone in a single story home with 1 step and grab bar to enter. Patient is independent at home. Patient states she will have family stay with her for a couple of weeks. Transportation: daughter DME/HHC: Patient has shower chair, raised toilet, cane, and grab bars at home. Patient has been to TCU in the past. ANDREA LI reviewd progress with therapy and recommending HHC. RN GUILLERMO discussed HHC at discharge, patient agreeablet and HHC list provided. Patient and daughter to review list and provide preferences. Patient states she has no further needs or concerns at this time. CM to follow for discharge planning needs that may arise. Disposition Plan: Patient to discharge home with HHC, family support, and follow-up plans in place. Lori MISTRY, RN, CM
--- NOTE | 2023-07-08 12:30 | CASEMGMT ---
ANDREA LI in to discuss preferences for HHC. Daughter and patient prefer [facility]. Patient will also need walker at discharge, script received. Patient would like [facility] for walker. ANDREA LI sent referral to [facility] and provided walker from floor stock. Discharge demand planning analyst to send referral to [facility]. ANDREA LI to update patient and acceptance when received.
--- NOTE | 2023-07-08 12:49 | CHAPLAIN ---
Type of Pastoral Visit _x__ Initial Visit ___ Follow-up Visit ___ On-call Visit ___ General Patient Visit ___ Spiritual Assessment ___ Family Conference ___ Bereavement ___ Rapid Response ___ Code Blue ___ Other (describe below) Pastoral Care Referral From _x__ Patient ___ Family ___ Nurse ___ Physician ___ Mid Level Clinician ___ Lime Mixer Tender ___ Other (describe below) Sacrament/Intervention _x__ Active listening ___ Anointing ___ Baptist ___ Bereavement ___ Communion ___ Rody exploration ___ ___ Life review ___ Prayer ___ Reconciliation ___ Sacrament of Sick ___ Supportive presence ___ Wedding ___ Other (describe below) Pastoral Comments had a couple of interruptions during this visit; pt was focused on her synagogue and being happy with the buddhism even though we are very few in number; pt has two children that live near her and she feels that she is being well cared for in the hospital and by family; pt has no identified needs or concerns
[2023-07-08 14:08] VITALS: BP 112/47; PULSE 84; RESP 16; TEMP 37.2; O2SAT 97
--- NOTE | 2023-07-08 14:31 | CASEMGMT ---
Discharge Planning HH referral sent via [facility]Port to [facility]. Nichelle Ramos, Discharge Planning Asst.
--- NOTE | 2023-07-08 15:00 | CASEMGMT ---
RN CM update by [facility] that they are not able to accept patient. RN CM updated patient and family and would like [facility]. RN CM called and made referral to [facility] awaiting acceptance.
--- NOTE | 2023-07-08 15:40 | CASEMGMT ---
RN CM update by [facility] that patient was accpeted with start of care for tomorrow. RN CM updated patient and daughter. Patient and daughter had no further questions or concerns. Discharge plan updated.
== END 2023-07-08 09:20 | disposition home health service (06) ==
LOC: ED 09:58 → PCU 11:04
PROVIDERS: Admitting Provider Internal Medicine; Emergency Provider Emergency Medicine; PCP Student in an Organized Health Care Education/Training Program; Visit Provider Internal Medicine
DX: R42 Dizziness and giddiness (principal); E87.1 Hypo-osmolality and hyponatremia; R55 Syncope and collapse; R06.02 Shortness of breath; R47.9 Unspecified speech disturbances; I10 Essential (primary) hypertension; E03.9 Hypothyroidism, unspecified; L71.9 Rosacea, unspecified; Z79.899 Other long term (current) drug therapy; Z79.890 Hormone replacement therapy
CPT/HCPCS: 36415; 70496; 70498; 70551; 71045; 80048; 80061; 80076; 81001; 83735; 84100; 84443; 84484; 85025; 93005; 93306; 94668; 94762; 96360; 96361; 96372; 97162; 97166; 97802; 99221; 99285; J7030; Q9967; A4216; G0378

== ENCOUNTER 2023-07-24 20:59 | Emergency (ER) | payer MEDICARE, SELFPAY ==
[2023-07-24 21:01] VITALS: BP 186/70; PULSE 76; RESP 18; TEMP 36.7; O2SAT 98; BMI 19.7
--- NOTE | 2023-07-24 21:13 | CT_ITS ---
INDICATION: Acute change in mental status EXAMINATION: CT BRAIN - CT Head or Brain W/O Contrast Injection TECHNIQUE: Multiple axial images were obtained of the head without intravenous contrast. A radiation dose optimization technique was used for this scan. IV Contrast dosage and agent: None. COMPARISON: October 01, 2019 CT head. July 07, 2023 CTA head and MRI brain FINDINGS: BRAIN PARENCHYMA: No intra- or extra-axial hemorrhage. No evidence of acute infarct. No intracranial mass or mass effect. Mild periventricular and subcortical white matter hypodense chronic small vessel white matter ischemic change. There is preservation of the sheikh/white matter interface. Posterior fossa structures are unremarkable. Carotid and vertebral atherosclerosis. CSF SPACES: Moderate global cerebral volume loss. No hydrocephalus. Basal cisterns are patent. CALVARIUM, SKULL BASE, PARANASAL SINUSES AND MASTOID AIR CELLS: No acute osseous finding. Mild scattered paransal sinus mucoperisteal thickening. Mastoid air cells are clear. ORBITS: Both globes, extraocular muscles, optic nerves and retrobulbar fat appear unremarkable. ASPECTS Score for Acute Strokes: 10 CT/Brain/Head without Contrast IMPRESSION: No CT evidence of acute intracranial hemorrhage or injury. Moderate senescent changes Mild scattered sinus disease. Electronically Signed: Jv Gonzalez MD at 22:39 EDT ,
--- NOTE | 2023-07-24 21:13 | EKG12_ITS ---
Test Reason : DYSRHYTHMIA Blood Pressure : / mmHG Vent. Rate : 069 BPM Atrial Rate : 069 BPM P-R Int : 134 ms QRS Dur : 082 ms QT Int : 386 ms P-R-T Axes : 055 040 063 degrees QTc Int : 413 ms Sinus rhythm with Premature supraventricular complexes Nonspecific ST abnormality Abnormal ECG Confirmed by MAGED OLSEN, ARMIDA ([id number]), sound editor JANENE WATT ([id number]) on 07/25/2023 8:21:01 AM Referred By: Confirmed By:ARMIDA LYNNE MD
--- NOTE | 2023-07-24 21:14 | ED.RN ---
DR LANCE IN TRIAGE ASSESSING PT,ASKED ABOUT CALLING A STROKE ALERT,STATED NOT NOW.
[2023-07-24 21:24] LABS: Absolute Lymphocyte Count 1.56 X10^3/uL (0.83-4.51); Absolute Neutrophil Count 4.3 X10^3/uL (2.0-7.7); Basophil# 0.07 X10^3/uL; Eosinophil# 0.35 X10^3/uL; Hematocrit 43.8 % (37-47); Hemoglobin 14.1 g/dL (12.0-15.0); Lymphocyte # 1.56 X10^3/ul (0.83-4.51); Lymphocyte % 22.2 % (19-41); Mean Corp Hgb Conc 32.2 g/dL (32-36); Mean Corpuscular Hgb 29.2 pg (27.0-32.0); Mean Corpuscular Volume 90.7 fL (81-99); Mean Platelet Vol. 9.4 fl (6.2-12.0); Monocyte# 0.69 X10^3/uL; Monocyte% 9.8 % (0-10); NRBC Flagged by Analyzer 0 % (0-5); Neutrophil # 4.34 X10^3/uL (2.7-7.7); Neutrophil % 61.6 % (47-70); Platelet Count 257 K/mm3 (150-450); RBC Distribution Width CV 12.8 % (11.6-14.6); RBC Distribution Width SD 42.4 fl (35.1-43.9); Red Blood Count 4.83 M/mm3 (4.2-5.4)
[2023-07-24 21:35] LABS: Partial Thromboplast Time 21.7 Seconds (24.1-36.2); Prothrombin Time (Protime)PT. 13.3 SECONDS (11.7-14.9)
[2023-07-24 21:42] LABS: AST(SGOT) 16 U/L (15-37); Alanine Aminotransfer ALT/SGPT 28 U/L (13-56); Albumin, Serum 3.6 g/dL (3.2-5.0); Alkaline Phosphatase 60 U/L (45-117); Anion Gap 2 (5-15); BUN 17 mg/dL (7-18); BUN/Creat Ratio 23.8 RATIO (10-20); Calcium,Total 9.5 mg/dL (8.5-10.1); Chloride 98 mmol/L (98-107); Creatinine, Serum 0.71 mg/dL (0.55-1.02); EST Glomerular Filtration Rate 82 mL/min (>60); Est Glom Filt Rate - Afr Amer 99 mL/min (>60); Estimated Creatinine Clearance 36.87 ml/min; Globulin 3.5 g/dL (2.2-4.2); Glucose 169 mg/dL (74-106); Potassium 4.5 mmol/L (3.5-5.1); Protein, Total 7.1 g/dL (6.4-8.2); Sodium Level 131 mmol/L (136-145)
[2023-07-24 21:43] LABS: Bedside Glucose 137 mg/dL (74-106)
[2023-07-24 22:42] VITALS: BP 170/66; PULSE 70; RESP 16; TEMP 36.8; O2SAT 97
--- NOTE | 2023-07-24 22:43 | EDS_ITS ---
HPI History of Present Illness Chief Complaint: Confusion Detail of Chief Complaint: Patient presents with confusion. Last known normal at 1300. Informant: patient and family Onset/Context/Timing Onset: Today Context: Sudden Onset (Presumed) Timing: Continuous Quality: Disorientation/confusion Location: [employer] Current Severity: Mild Maximum Severity: Mild Worsened by: Nothing Relieved by: Nothing Associated Symptoms Associated Symptoms: There are no associated symptoms Narrative Narrative: Patient is an 88-year-old female. She has history of depression. She is no longer taking fluoxetine. She also has history of hypothyroidism. One of her med list is timolol eyedrops. She denies history of glaucoma, however. She is not certain why she is on that medicine. Patient states she knows there is something wrong. She knows she is confused. She denies headache. Denies double vision, blurred vision loss of vision. Denies ringing in ears or decreased hearing. She denies rhinorrhea, congestion or postnasal drainage. Denies sore throat. Denies trouble with speech or swallowing. Patient Nuys chest pain, orthopnea, PND. Patient denies cough or shortness of breath. Patient has abdominal pain. She denies nausea, vomiting diarrhea. She denies dysuria, frequency, urgency or hematuria. She denies weakness in her arms or legs. Denies numbness in her arms or legs. Prior similar symptoms: No Recent Illness/Hospitalization: No [facility] Medical History Arthritis Glaucoma Hypothyroidism Home Medications Vit D3/Folic Acid/B2/B6/B12 [Folgard Tablet] 1 tab PO DAILY 01/03/16 [History Last Taken 07/06/23] latanoprost 0.005 % eye drops 1 drp DAILY 01/03/16 [History Last Taken 07/06/23] timolol maleate 0.5 % eye drops 1 drp 0600,2200 01/17/16 [Rx Last Taken 07/06/23] fluoxetine 10 mg capsule 10 mg PO DAILY 07/07/23 [History Last Taken 07/06/23] levothyroxine 88 mcg tablet 88 mcg PO DAILY 07/07/23 [History Last Taken 07/07/23] losartan 25 mg tablet 25 mg PO DAILY 07/07/23 [History Last Taken 07/06/23] sodium chloride 1,000 mg soluble tablet 1,000 mg PO TID 07/07/23 [History Last Taken 07/06/23] Allergy/AdvReac Type Severity Reaction Status Date / Time Penicillins Allergy Unknown Unknown Verified 07/24/23 21:05 alendronate sodium Allergy Unknown Verified 07/24/23 21:05 [From Fosamax] Sulfa (Sulfonamide Allergy Unknown Verified 07/24/23 21:05 Antibiotics) Tetracyclines Allergy Unknown Verified 07/24/23 21:05 fluoxetine [From Prozac] AdvReac Intermediate Rash Verified 07/24/23 21:06 Social History (Updated 07/24/23 @ 22:[address] Gama Vasquez MD) household members: none Smoking Status: Never smoker ROS ROS ED Constitutional Constitutional ED: Denies chills, fever(s), subjective or sweats Eyes Eyes: Denies blurry vision or change in vision ENT ENT ED: Denies ear pain, rhinorrhea or sore throat Cardiovascular Cardiovascular: Denies chest pain, orthopnea, palpitations, paroxysmal nocturnal dyspnea or racing heartbeat Respiratory/Chest Respiratory/Chest: Denies cough, dyspnea, dyspnea on exertion, orthopnea or paroxysmal nocturnal dyspnea Gastrointestinal Gastrointestinal: Denies abdominal pain, diarrhea, melena, nausea or vomiting Genitourinary Genitourinary ED: Denies dysuria, hematuria or urinary frequency Musculoskeletal Musculoskeletal: Denies arthralgias, back pain, myalgias or neck pain Neurologic Neurologic: Denies headache(s), paresthesias or weakness Psychiatric Psychiatric: Denies anxiety or depression Endocrine Endocrinology: Denies cold intolerance or heat intolerance Hematologic/Lymphatic Hematologic/Lymphatic: Reports systems reviewed and no addt'l complaints, except as documented EXAM Physical Exam Const Vital Signs: 07/24/23 21:01 07/24/23 22:42 Temperature 98.0 F 98.2 F Temperature Source Temporal Oral Pulse Rate 76 70 Respiratory Rate 18 16 Blood Pressure 186/70 H 170/66 H Blood Pressure Mean 108 100 Pulse Ox 98 97 Oxygen Delivery Method Room Air Room Air Positive well nourished and well developed General Appearance ED: well developed and NAD; Negative for cyanotic, diaphoretic or pallor HEENT Reports moist mucous membranes HEENT Narrative: Head is atraumatic normocephalic. Ears normal. Nares patent. Uvula midline. No deviation with protrusion. No erythema or exudate the posterior pharynx. Eyes PERRL and EOMs intact bilaterally Eyes Narrative: There is no nystagmus. There is no visual field cut. General Eye ED: Negative for pale conjunctiva or scleral icterus Neck no lymphadenopathy, supple and no JVD Chest Wall inspection of chest normal and palpation of chest normal Resp normal respiratory effort and clear to auscultation bilaterally Cardio regular rate, regular rhythm, S1 normal heart sound, S2 normal heart sound and no murmurs GI normal to inspection, nondistended, normoactive bowel sounds, non-tender, non- distended and no masses; Negative for hepatosplenomegaly Back/Spine no CVA tenderness Cervical Spine: Negative for cervical spine tenderness Thoracic Spine / Upper Back: Negative for thoracic spinal tenderness Lumbar Spine / Lower Back: Negative for lumbar spinal tenderness Extremity normal to inspection General Extremety ED: Negative for edema or tenderness General Extremity: Negative for edema Neuro No oriented x3, CN's II-XII intact bilaterally and no sensory deficits noted Neuro Narrative: There is no dysmetria. She is disoriented to time. Sensorium / Orientation: alert Motor Exam: strength 5/5 throughout Psych mental status grossly normal Skin no rashes or lesions noted, no wounds and skin turgor normal General Skin Exam: Negative for elasticity normal, jaundice or pallor MDM MDM MDM Narrative Medical decision making narrative: With acute confusion need to assess for metabolic infectious causes. Intracranial process. This may represent atypical presentation for stroke. Patient's NIH is 1 for not knowing the month. Lab Data Attestation: I reviewed the patient's lab results. Lab results narrative: CBC is normal. H&H is normal. Coags are unremarkable. Basic metabolic panel is remarked for glucose of 169. CO2 and anion gap are normal. Hepatic enzymes are normal. Patient has chronic mild hyponatremia. Labs: Laboratory Results - last 24 hr 07/24/23 07/24/23 07/24/23 21:12 21:25 22:39 WBC 7.0 RBC 4.83 Hgb 14.1 Hct 43.8 MCV 90.7 MCH 29.2 MCHC 32.2 RDW Std Deviation 42.4 RDW Coeff of Dyan 12.8 Plt Count 257 MPV 9.4 Immature Gran % (Auto) 0.400 Neut % (Auto) 61.6 Lymph % (Auto) 22.2 [place] % (Auto) 9.8 Eos % (Auto) 5.0 Baso % (Auto) 1.0 Absolute Neuts (auto) 4.3 Absolute Lymphs (auto) 1.56 Nucleated RBC % 0 PT 13.3 INR 1.0 APTT 21.7 L Sodium 131 L Potassium 4.5 Chloride 98 Carbon Dioxide 31.0 Anion Gap 2 L BUN 17 Creatinine 0.71 Estim Creat Clear Calc 36.87 Est GFR (MDRD) Af Amer 99 Est GFR (MDRD) Non-Af 82 BUN/Creatinine Ratio 23.8 H Glucose 169 H Calcium 9.5 Total Bilirubin 0.80 AST 16 ALT 28 Alkaline Phosphatase 60 Total Protein 7.1 Albumin 3.6 Globulin 3.5 Albumin/Globulin Ratio 1.0 Urine Color Yellow Urine Clarity Clear Urine pH 6.5 Ur Specific [place] 1.010 Urine Protein Negative Urine Glucose (UA) Normal Urine Ketones Negative Urine Occult Blood 10 H Urine Nitrite Negative Urine Bilirubin Negative Urine Urobilinogen Normal Ur Leukocyte Esterase 25 H Urine RBC 0 SEEN Urine WBC 0-5 SEEN Ur Squamous Epith Cells 0 SEEN Urine Bacteria 0 SEEN Urine Mucus 0 SEEN POC Glucose 137 H UA is negative. Since patient is back to baseline we will discharge to home. Radiography Diagnostic Testing: Clinical Impression(s) from Imaging Studies Brain CT 07/24/23 21:13 IMPRESSION: No CT evidence of acute intracranial hemorrhage or injury. Moderate senescent changes Mild scattered sinus disease. Electronically Signed: Jv Gonzalez MD at 22:39 EDT Reading Location ID and State: [facility] / [place] Tel , Service support , Treatment and Re-Evaluation :: Patient was reassessed at 2255. Patient is no longer confused. She can recall things. She is oriented. If UA is negative patient may had an episode of global amnesia. Discharge Plan Triage Chief Complaint: Confusion ED Provider: Gama Vasquez Dx/Rx/DC Orders Clinical Impression: Acute alteration in mental status, Hyponatremia, Transient global amnesia Instructions: Understanding Reversible Dementias Prescriptions: No Action Vit D3/Folic Acid/B2/B6/B12 [Folgard Tablet] 1 EACH tablet 1 tab PO DAILY latanoprost 1 DROP bottle 1 drp Each Eye DAILY Patient Comments: IN AM PER PATIENT REQUEST timolol maleate 1 DROP drops 1 drp Each Eye 0600,2200 0RF Patient Comments: takes at HS levothyroxine 88 mcg tablet 88 mcg PO DAILY losartan 25 mg tablet 25 mg PO DAILY fluoxetine 10 mg capsule 10 mg PO DAILY sodium chloride 1,000 mg tablet,soluble 1,000 mg PO TID Primary Care Provider: Antwon Staton Referrals: Antwon Staton DO [Primary Care Provider] - 5-7 Days Disposition Disposition: Home, Self Care
[2023-07-24 22:47] LABS: Bacteria 0 SEEN /hpf (None Seen); Mucous, Urine 0 SEEN /hpf (<or=2+); Red Blood Cells-Urine 0 SEEN /hpf (0-5); Squamous Epithelial Cells - UA 0 SEEN /hpf (5-10)
[2023-07-24 22:57] LABS: Color, Urine Yellow (Yellow); Glucose, Dipstick Normal (Normal); Ketone-Dipstick Negative (Negative); Leukocyte Esterase-Dipstick 25 /ul (Negative); Nitrite-Dipstick Negative (Negative); Occult Blood-Urine 10 /ul (Negative); Protein-Dipstick Negative (Negative); Urine Bilirubin Dipstick Negative (Negative); Urine Clarity Clear (Clear); Urine Urobilinogen Normal (Normal); Urine pH 6.5 (5.0 - 8.0)
[2023-07-24 23:02] LABS: White Blood Cells 0-5 SEEN /hpf (0-5)
[2023-07-24 23:19] VITALS: BP 161/89; PULSE 71; RESP 16; TEMP 36.8; O2SAT 95
== END 2023-07-24 23:19 | disposition home or self-care (01) ==
PROVIDERS: Emergency Provider Emergency Medicine; PCP Student in an Organized Health Care Education/Training Program; Visit Provider Emergency Medicine
DX: G45.4 Transient global amnesia (principal); R41.0 Disorientation, unspecified; E87.1 Hypo-osmolality and hyponatremia; R10.9 Unspecified abdominal pain; E03.9 Hypothyroidism, unspecified; Z79.890 Hormone replacement therapy; Z79.899 Other long term (current) drug therapy
CPT/HCPCS: 70450; 80053; 81001; 82962; 85025; 85610; 85730; 93005; 99283; A4216